=== PATIENT | female | born 1990 | race Caucasian/White ===

== ENCOUNTER → 2019-06-17 | Outpatient (CLI) | payer BC ==
[~2019-06-17] MED LIST: BCP PO
--- NOTE | 2019-06-17 17:08 | Diagnostic Imaging Report ---
INDICATION: survey, anatomic evaluation. TECHNIQUE: Multiple real-time grayscale images were obtained over the gravid uterus. COMPARISON: None FINDINGS: Number: 1 Presentation: Cephalic Placenta: Anteriorly located without evidence of placenta previa Amniotic Fluid: ALICIA is 13.7 cm. Single largest vertical pocket is 4.9 cm. Heart Rate: 150 bpm Overall biometrics are consistent with an estimated gestational age of 22 weeks and 0 days. Therefore, there is an estimated due date based upon this examination of 10/21/2019. Findings are consistent with clinical dating. However, biometrics for the femur are advanced when compared to the biometrics of the head or abdomen. FINDINGS: The four-chamber heart is not optimally visualized secondary to lie and patient body habitus. Otherwise, The anatomic survey is grossly unremarkable. The stomach, kidneys, bladder, three-vessel cord and the cord insertion are well seen. The spine and intracranial structures are grossly unremarkable. IMPRESSION: Single live intrauterine at approximately 22 weeks and 0 days, with an RADHA of 10/21/2019. These are consistent with clinical dates. Femoral length is slightly advanced when compared to other biometrics. This is favored to simply be technical in nature. Follow-up ultrasound in 4-8 weeks is recommended to evaluate growth. The four-chamber heart is not optimally evaluated. This should be reevaluated at the time of follow-up ultrasound. Biometrical measurements are as follows: Biparietal 5.07 cm, age 21 weeks 3 days. Head circumference 18.02 cm, age 20 weeks 4 days. Abdominal circumference 15.38 cm, age 20 weeks 5 days. Femur length 4.49 cm, age 24 weeks 6 days. Sonographic estimate age: 22 weeks 0 days. Sonographic estimated date of delivery: 10/21/2019. Estimated Weight: 489 gm (+/- 71 gm). LMP percentile: 98%. heart rate: 150 beats per minute. number: 1 of 1. Dictated by: Dictated on workstation # [id number]
== END ==
LOC: RAD 14:58
PROVIDERS: ATTEND Nurse Practitioner Women's Health
DX: Z36.9 Encounter for antenatal screening, unspecified (principal); Z3A.22 22 weeks gestation of pregnancy
CPT/HCPCS: 76805

== ENCOUNTER → 2021-06-28 | Outpatient (CLI) | payer BC, OTHER ==
[~2021-06-28] MED LIST changes: +ACHD5005 PO; +DOCU-239 PO; +IBUP-844 PO
--- NOTE | 2021-06-28 16:27 | Diagnostic Imaging Report ---
INDICATION: survey. TECHNIQUE: Multiple real-time grayscale images were obtained over the gravid uterus. COMPARISON: None. FINDINGS: There is a single live fetus in a transverse presentation, head to the maternal left. heart rate was recorded at 135 BPM. Placenta is posterior. No previa is identified. The amniotic fluid index is 11 cm. Cervical length is 6.6 cm. survey shows kidneys, bladder and stomach to be unremarkable. The brain is unremarkable. There is a four-chamber heart. There is a three-vessel cord with normal insertion. The spine is unremarkable. Biometrical measurements are as follows: Biparietal 4.42 cm, age 19 weeks 3 days. Head circumference 17.53 cm, age 20 weeks 1 days. Abdominal circumference 14.55 cm, age 20 weeks 0 days. Femur length 3.12 cm, age 19 weeks 5 days. Sonographic estimate age: 19 weeks 6 days. Sonographic estimated date of delivery: 11/16/2021. Estimated Weight: 313 gm (+/- 46 gm). LMP percentile: 41%. heart rate: 135 beats per minute. number: 1 of 1. IMPRESSION: Single live IUP of 19 weeks 6 days gestational age. Estimated date of confinement sonographically is 11/16/2021. Dictated by: Dictated on workstation # [id number]
== END ==
LOC: RAD 11:48
PROVIDERS: ATTEND Nurse Practitioner Women's Health
DX: Z34.02 Encounter for supervision of normal first pregnancy, second trimester (principal); Z3A.19 19 weeks gestation of pregnancy
CPT/HCPCS: 76805

== ENCOUNTER 2021-11-01 05:29 | Outpatient (CLI) | payer OTHER ==
[~2021-11-01] VITALS: Ht 154.9 cm; Wt 127.2 kg
[2021-11-02] MEDS ORDERED: LORA10TA72 PO (10:02)
[2021-11-02] MEDS ORDERED: FAMO40TA6 PO (10:02)
[2021-11-02] MEDS ORDERED: PREN1COM PO (10:02)
== END 2021-11-02 11:44 | disposition home or self-care (01) ==
LOC: PREOP 05:29
PROVIDERS: ATTEND Obstetrics & Gynecology
DX: Z01.818 Encounter for other preprocedural examination (principal)

== ENCOUNTER 2021-11-08 05:30 | Inpatient (IN) | payer OTHER ==
[2021-11-08] VITALS (12 sets, daily range): BP systolic 93–128; BP diastolic 58–72
[~2021-11-08] VITALS: Ht 154.9 cm; Wt 132.4 kg
[~2021-11-08 05:30] MED LIST changes: +FAMO40TA6 PO; +LORA10TA72 PO; +PREN1COM PO
[2021-11-08] MEDS ORDERED: FAMOTIDINE 20MG/2ML IV (PEPCID) IV ONE (05:45)
[2021-11-08] MEDS ORDERED: METOCLOPRAMIDE INJ 10 MG/2 ML (REGLAN) IV ONE (05:45)
[2021-11-08] MEDS ORDERED: LACTATED RINGERS 1,000 ML IV SCH (05:45)
[2021-11-08] MEDS ORDERED: ceFAZolin INJECTION 2,000 MG in NS (IVPB) 50 ML IV ONE (05:45)
[2021-11-08] MEDS ORDERED: CITRIC ACID/SOB CIT (BICITRA) 30 ML UDC PO ONE (05:45)
[2021-11-08] MEDS: LACTATED RINGERS 1,000 ML IV SCH ×3 (06:10→21:49)
[2021-11-08 06:14] LABS: BASOPHILS # (AUTO) 0.1 10^3/uL (0.0-0.1); BASOPHILS % (AUTO) 1 % (0-10); EOSINOPHILS # (AUTO) 0.1 10^3/uL (0.0-0.3); EOSINOPHILS % (AUTO) 2 % (0-10); HEMATOCRIT 34 % (35-52); HEMOGLOBIN 11.1 g/dL (11.5-16.0); LYMPHOCYTES # (AUTO) 2.1 10^3/uL (1.0-4.0); LYMPHOCYTES % (AUTO) 25 % (12-44); MEAN CORPUSCULAR HEMOGLOBIN 31 pg (25-34); MEAN CORPUSCULAR HGB CONC 33 g/dL (32-36); MEAN CORPUSCULAR VOLUME 95 fL (80-99); MEAN PLATELET VOLUME 10.4 fL (9.0-12.2); MONOCYTES # (AUTO) 0.7 10^3/uL (0.0-1.0); MONOCYTES % (AUTO) 8 % (0-12); NEUTROPHILS # (AUTO) 5.6 10^3/uL (1.8-7.8); NEUTROPHILS % (AUTO) 65 % (42-75); PLATELET COUNT 250 10^3/uL (130-400); WHITE BLOOD COUNT 8.6 10^3/uL (4.3-11.0)
--- NOTE | 2021-11-08 06:44 | History & Physical-OB ---
LOIDA PROCTOR 11/08/21 0644: OB - Chief Complaint & HPI Date/Time Date of Admission: Date of Admission: Nov 08, 2021 at 05:30 Date seen by a Provider: Nov 08, 2021 Time Seen by a Provider: 06:15 Chief Complaint/History OB-Reason for Admission/Chief: Section Hx : 2 Hx Para: 1 Expected Date of Delivery: Nov 15, 2021 Gestational Age in Weeks: 39 Gestational Age in Days: 0 Indication for induction: other (previous ) Indication for : desires repeat History of Labs RPR neg HBsAg neg RI HIV neg Allergies and Home Medications Allergies Coded Allergies: Penicillins (Verified Allergy, Unknown, 04/19/16) Sulfa (Sulfonamide Antibiotics) (Verified Allergy, Unknown, 04/19/16) Patient Home Medication List Home Medication List Reviewed: Yes Famotidine (Famotidine) 40 Mg Tablet, 40 MG PO DAILY, (Reported) Entered as Reported by: KENNY BARBOSA on 11/02/21 1002 Loratadine (Claritin) 10 Mg Tab.rapdis, 10 MG PO DAILY, (Reported) Entered as Reported by: KENNY BARBOSA on 11/02/21 1002 Prenat Vit Comb.10/Iron/FA/Dha (Vitafol-Ob+Dha Combo Pack) 65 Mg Iron-1 Mg-250 Mg Combo..pkg, 1 EACH PO DAILY, (Reported) Entered as Reported by: KENNY BARBOSA on 11/02/21 1002 Discontinued Medications Docusate Sodium (Dok) 100 Mg Capsule, 100 MG PO BID PRN for CONSTIPATION-1ST LINE Discontinued Reason: No Longer Taking Prescribed by: ROSEANNE ANGEL on 10/26/192239 Hydrocodone/Acetaminophen (Hydrocodone-Acetamin 5-325 mg) 1 Each Tablet, 1-2 TAB PO Q6HR PRN for PAIN-MODERATE (5-7) Discontinued Reason: No Longer Taking Prescribed by: ROSEANNE ANGEL on 10/26/192239 Ibuprofen (Ibu) 600 Mg Tablet, 600 MG PO Q6HR Discontinued Reason: No Longer Taking Prescribed by: ROSEANNE ANGEL on 10/26/192239 OB - History Hx of Present Care: Yes Ultrasounds: Normal mid trimester US Obstetrical Complications: Other (previous emergency ) Medical Complications: None Information Induced Hypertension: No Maternal Gestational Diabetes: No Hemorrhage: No Obstetrical History Hx : 2 Hx Para: 1 Hx Complication: No Hx Induced Hypertens: No Hx Maternal Gestational Diabet: No Hx Hemorrhage: No Delivery History Hx Section: Yes Adverse Rxn to Tranfusion: No Patient Past Medical History n/a Social History/Family History Alcohol Use: Denies Use Recreational Drug Use: No Smoking Cessation: Never smoker 2nd Hand Smoke Exposure: No Immunizations Hepatitis A: Yes Hepatitis B: Yes OB - Admission Exam Physical Exam Vitals: Vital Signs 11/08/21 06:10 Temp 36.8 Pulse 111 Resp 18 Pulse Ox 99 O2 Delivery Room Air HEENT: NCAT Heart: Rhythm Normal Lungs: Clear Abdomen: Gravid Extremities: Normal Labs Laboratory Tests Test 11/08/21 05:55 Range/Units White Blood Count 8.6 4.3-11.0 10^3/uL Red Blood Count 3.62 L 3.80-5.11 10^6/uL Hemoglobin 11.1 L 11.5-16.0 g/dL Hematocrit 34 L 35-52 % Mean Corpuscular Volume 95 80-99 fL Mean Corpuscular Hemoglobin 31 25-34 pg Mean Corpuscular Hemoglobin Concent 33 32-36 g/dL Red Cell Distribution Width 13.4 10.0-14.5 % Platelet Count 250 130-400 10^3/uL Mean Platelet Volume 10.4 9.0-12.2 fL Immature Granulocyte % (Auto) 0 % Neutrophils (%) (Auto) 65 42-75 % Lymphocytes (%) (Auto) 25 12-44 % Monocytes (%) (Auto) 8 0-12 % Eosinophils (%) (Auto) 2 0-10 % Basophils (%) (Auto) 1 0-10 % Neutrophils # (Auto) 5.6 1.8-7.8 10^3/uL Lymphocytes # (Auto) 2.1 1.0-4.0 10^3/uL Monocytes # (Auto) 0.7 0.0-1.0 10^3/uL Eosinophils # (Auto) 0.1 0.0-0.3 10^3/uL Basophils # (Auto) 0.1 0.0-0.1 10^3/uL Immature Granulocyte # (Auto) 0.0 0.0-0.1 10^3/uL OB - Assessment/Plan/Diagnosis Assessment Assessment: section Admission Dx 31 F repeat Admission Status: Inpatient Order (span 2 midnights) Reason for Inpatient Admission: 31F repeat Plan Plan: Section ROSEANNE ANGEL DO 11/08/21 0729: Allergies and Home Medications Allergies Coded Allergies: Penicillins (Verified Allergy, Unknown, 04/19/16) Sulfa (Sulfonamide Antibiotics) (Verified Allergy, Unknown, 04/19/16) Patient Home Medication List Famotidine (Famotidine) 40 Mg Tablet, 40 MG PO DAILY, (Reported) Entered as Reported by: KENNY BARBOSA on 11/02/21 1002 Loratadine (Claritin) 10 Mg Tab.rapdis, 10 MG PO DAILY, (Reported) Entered as Reported by: KENNY BARBOSA on 11/02/21 1002 Prenat Vit Comb.10/Iron/FA/Dha (Vitafol-Ob+Dha Combo Pack) 65 Mg Iron-1 Mg-250 Mg Combo..pkg, 1 EACH PO DAILY, (Reported) Entered as Reported by: KENNY BARBOSA on 11/02/21 1002 Discontinued Medications Docusate Sodium (Dok) 100 Mg Capsule, 100 MG PO BID PRN for CONSTIPATION-1ST LINE Discontinued Reason: No Longer Taking Prescribed by: ROSEANNE ANGEL on 10/26/19 2240 Hydrocodone/Acetaminophen (Hydrocodone-Acetamin 5-325 mg) 1 Each Tablet, 1-2 TAB PO Q6HR PRN for PAIN-MODERATE (5-7) Discontinued Reason: No Longer Taking Prescribed by: ROSEANNE ANGEL on 10/26/19 224 Ibuprofen (Ibu) 600 Mg Tablet, 600 MG PO Q6HR Discontinued Reason: No Longer Taking Prescribed by: ROSEANNE ANGEL on 10/26/19 2240 OB - Assessment/Plan/Diagnosis Plan Plan: Section Other Plan Verification and Attestation of Medical Student E/M Service A medical student performed and documented this service in my presence. I reviewed and verified all information documented by the medical student and made modifications to such information, when appropriate. I personally performed the physical exam and medical decision making. Roseanne Angel, Nov 08, 2021,07:29 LOIDA AGUAYO Nov 08, 2021 06:44 ROSEANNE ANGEL DO Nov 08, 2021 07:29
[2021-11-08] MEDS ORDERED: fentaNYL INJ 100 MCG/2 ML AMP ONE (07:04)
[2021-11-08] MEDS ORDERED: NEOSTIGMINE (BLOXIVERZ ) 1 MG/1ML 10 ML VIAL ONE (07:29)
[2021-11-08] MEDS ORDERED: PHENYLEPHRINE 100 MCG/ML 10 ML (ANESTHESIA) SYR ONE (07:30)
[2021-11-08] MEDS ORDERED: OXYTOCIN PRE-MIX DRIP 1,000 ML IV ONE (07:30)
[2021-11-08] MEDS ORDERED: ROPIVACAINE 5MG/ML 30ML VIAL ONE (07:41)
[2021-11-08] MEDS ORDERED: MEASLES,MUMPS,RUBELLA 1 EA INJ SC SCH (07:45)
[2021-11-08] MEDS ORDERED: BISACODYL 10 MG SUPP (DULCOLAX) PR PRN (07:45)
[2021-11-08] MEDS ORDERED: TETANUS,DIPTH,PERTUSS P/F (BOOSTRIX) 0.5 ML VIAL IM SCH (07:45)
[2021-11-08] MEDS ORDERED: NALOXONE 0.4 MG/ML 1 ML (NARCAN) VIAL IV PRN (07:45)
[2021-11-08] MEDS ORDERED: ONDANSETRON 4 MG/2 ML (SDV) Z0FRAN IVP PRN ×2 (07:45→08:45)
[2021-11-08] MEDS ORDERED: ONDANSETRON 4 MG/2 ML (SDV) Z0FRAN ONE (07:52)
[2021-11-08] MEDS ORDERED: KETOROLAC 30 MG/ML VIAL ONE (08:06)
[2021-11-08] MEDS: KETOROLAC 30 MG/ML VIAL IV SCH ×3 (08:20→21:19)
[2021-11-08] MEDS ORDERED: HYDROmorphone 2 MG/ML VIAL (DILAUDID) IV ONE ×2 (08:45→12:45)
[2021-11-08] MEDS ORDERED: IBUP-844 PO (08:55)
[2021-11-08] MEDS ORDERED: DOCU100C37 PO (08:55)
[2021-11-08] MEDS ORDERED: ACHD5005 PO (08:55)
--- NOTE | 2021-11-08 08:57 | Discharge Inst-Women's Service ---
Discharge Inst-Women's Serv Depart Medication/Instructions New, Converted or Re-Newed RX: Transmitted to Pharmacy Final Diagnosis POD 2 RLTCS Problems Reviewed?: Yes Consults/Follow Up Additional Follow Up: Yes Orders/Referrals Dr. Angel in 7-10 days and in 6 weeks Activity Activity: Activity as Tolerated Driving Instructions: No Driving for 1 Week NO SMOKING: NO SMOKING Nothing Inside Vagina: No Douching, No [place], No Tampons Diet Discharge Diet: No Restrictions Symptoms to Report to : Bleeding Excessive, Pain Increased, Fever Over 101 Degrees F, Vaginal Bleeding Increase, Questions/Concerns For Any Problems or Questions: Contact Your Physician Skin/Wound Care Infection Signs and Symptoms: Increased Redness, Foul Odor of Wound, Increased Drainage, Skin Itchy or Has a Rash, Increased Swelling, Temperature Above 101 F Operative Area Clean and Dry: Keep Incision Clean/Dry Stitches/[place]/Dermabond: Dermabond, Care of Stitches Bathing Instructions: ROSEANNE Soto DO Nov 08, 2021 08:56
[2021-11-08] MEDS: OXYTOCIN PRE-MIX DRIP 500 ML IV SCH ×2 (09:03→12:58)
[2021-11-08] MEDS: DOCUSATE SODIUM 100 MG (COLACE) CAP PO SCH ×2 (09:30→21:19)
[2021-11-08] MEDS: HYDROcodone/APAP 5 MG/325 MG (LORTAB) TAB PO PRN ×3 (11:11→23:29)
--- NOTE | 2021-11-08 13:30 | OPERATIVE REPORT ---
DATE OF SERVICE: 11/08/2021 PREOPERATIVE DIAGNOSES: 1. A 31-year-old G2, P1 at 39 weeks gestation. 2. Previous section. POSTOPERATIVE DIAGNOSES: 1. A 31-year-old G2, P1 at 39 weeks gestation. 2. Previous section. PROCEDURE: Repeat low transverse section. SURGEON: Ta Goldberg DO ANESTHESIA: Spinal. ESTIMATED BLOOD LOSS: 700 mL. URINE OUTPUT: 100 mL clear at the end of the procedure. FLUIDS: 1400 mL lactated Ringer's solution. FINDINGS: A live male weighing 8 pounds 13 ounces, Apgars of 8 and 9. Grossly normal appearing uterus, bilateral fallopian tubes and ovaries. SPECIMEN SENT: Placenta. INDICATIONS FOR PROCEDURE: This is a 31-year-old female is a patient who had sought care in my office. Her care was uncomplicated with the exception for need for repeat . Risks of the procedure were discussed with the patient in detail in the preoperative area including risk of bleeding, infection, damaging surrounding structures including, but not limited to bowel, bladder, ureter, kidneys, possible need for reoperation, postoperative complications that may occur, risk from anesthesia, recovery timeframe and even . After everything was discussed with the patient in detail, consent was obtained, the patient was taken to the operating room. OPERATIVE REPORT IN DETAIL: Once in the operating room, spinal analgesia was found to be adequate. She was placed in supine position with leftward tilt, prepped and draped in normal sterile fashion. A timeout was performed, and anesthesia was tested. I then make a Pfannenstiel skin incision through the previously existing scar using knife and carried down to underlying fascia using Bovie cautery. The fascial incision extended laterally using Bovie cautery. The superior aspect of fascial incision was then grasped with Jonatan clamps, tented up and dissected off the underlying rectus muscles. The inferior aspect of fascial incision was then grasped with Jonatan clamps, tented up and dissected off the underlying rectus muscles. The rectus muscles were dissected sharply down the midline, which exposed the peritoneum, which I entered bluntly and extended using blunt traction. Kenny ring retractor was placed in the peritoneal incision, which offers excellent lateral sidewall lateral sidewall retraction. I identified the lower uterine segment, which was found to be thinned out and make a low transverse incision to the vesicouterine peritoneum and bluntly dissected off the lower uterine segment, creating a bladder flap. I then proceeded with my myotomy until membranes were visualized, at which point I extended the uterine incision laterally and superiorly using bandage scissors. Amniotomy was then performed using Allis clamp. Clear fluid was noted. Infant was found in vertex presentation. With gentle fundal pressure, the infant's head was elevated up the incision where it delivered through the incision. The nares and oropharynx were bulb suctioned. Anterior and posterior shoulders were delivered. The infant was then brought to the operative field where the cord was doubly clamped and cut, and was handed off to waiting nurses in attendance. Cord blood was collected, 3-vessel cord with intact placenta delivered spontaneously thereafter. IV Pitocin was initiated to facilitate uterine contraction. Uterine fundus confirmed by manual massage. The uterus was then exteriorized and cleared of all endometrial clots and debris. I then proceeded with closing the uterine incision using 0 Vicryl suture in running locked fashion. A second layer of imbricating 0 Monocryl was placed. Excellent hemostasis was noted after doing this. I then placed the uterus back in the pelvis and copiously irrigated the pelvis using normal saline. Once again, there was no active bleeding noted from any of my dissection planes. I placed Interceed antiadhesive over my low transverse incision. I removed the Kenny ring retractor and then proceeded with closing the peritoneum using 3-0 Vicryl suture in a running fashion. The rectus muscles were reapproximated using 3-0 Vicryl suture in interrupted fashion. The fascia was reapproximated using 0 Vicryl suture in running fashion. The subcutaneous tissue was reapproximated using 3-0 plain interrupted subcutaneous stitch and skin reapproximated using 4-0 Monocryl running subcuticular. Dermabond was applied to incision and sterile dressing with adhesive white tape. The patient tolerated the procedure well and sent to recovery in stable condition. Lap and sponge counts were correct at the end of procedure. Instrument counts correct as well. Two grams of Ancef given preoperatively for infection prophylaxis. Job ID: [id number] DocumentID: [id number] Dictated Date: 11/08/2021 10:16:24 Fine Arts Model Date: 11/08/2021 13:29:49 Dictated By: TA GOLDBERG DO
[2021-11-08] MEDS: CATHETER FLUSH 10 ML SYR IV SCH ×2 (17:03→21:37)
[2021-11-09] VITALS: BP 108/71
[2021-11-09] MEDS: LACTATED RINGERS 1,000 ML IV SCH (00:42)
[2021-11-09] MEDS: CATHETER FLUSH 10 ML SYR IV SCH (03:37)
[2021-11-09] MEDS: KETOROLAC 30 MG/ML VIAL IV SCH (03:37)
[2021-11-09 03:42] VITALS: BP 116/56
[2021-11-09 05:43] LABS: BASOPHILS % (AUTO) 1 % (0-10); EOSINOPHILS # (AUTO) 0.1 10^3/uL (0.0-0.3); EOSINOPHILS % (AUTO) 2 % (0-10); HEMATOCRIT 31 % (35-52); LYMPHOCYTES % (AUTO) 25 % (12-44); MEAN CORPUSCULAR HEMOGLOBIN 30 pg (25-34); MEAN CORPUSCULAR HGB CONC 33 g/dL (32-36); MEAN CORPUSCULAR VOLUME 91 fL (80-99); MEAN PLATELET VOLUME 9.7 fL (9.0-12.2); MONOCYTES # (AUTO) 0.7 10^3/uL (0.0-1.0); MONOCYTES % (AUTO) 8 % (0-12); NEUTROPHILS # (AUTO) 5.1 10^3/uL (1.8-7.8); NEUTROPHILS % (AUTO) 64 % (42-75); PLATELET COUNT 200 10^3/uL (130-400); WHITE BLOOD COUNT 7.9 10^3/uL (4.3-11.0)
--- NOTE | 2021-11-09 08:15 | Anesthesia-Regional Post-Op ---
Regional Patient Condition Mental Status: Alert, Oriented x3 Circulation: Same as Pre-Op Headache: Absent Sensation: Full Recovery Motor Block: Absent Post Op Complications Complications None Follow Up Care/Instructions Patient Instructions None needed. Anesthesia/Patient Condition Patient is doing well, no complaints, stable vital signs, no apparent adverse anesthesia problems. No complications reported per nursing. DEBORAH PENN CRNA Nov 09, 2021 08:15
[2021-11-09] MEDS: IBUPROFEN 600 MG (MOTRIN) TAB PO SCH ×3 (08:47→21:25)
[2021-11-09] MEDS: DOCUSATE SODIUM 100 MG (COLACE) CAP PO SCH ×2 (08:47→21:25)
[2021-11-09] MEDS: HYDROcodone/APAP 5 MG/325 MG (LORTAB) TAB PO PRN ×3 (08:48→22:27)
[2021-11-09 08:49] VITALS: BP 130/63
--- NOTE | 2021-11-09 10:33 | Postpartum Progress Note ---
Note Note Day # 1 Subjective: Patient is without complaints. Ambulating, voiding. Tolerating a regular diet without nausea or vomiting. Normal lochia. Pain is well controlled with oral pain medications. Physical Exam: General - Alert and oriented, no apparent distress Abdomen - Soft, appropriately tender to palpation, non-distended, fundus firm at umbilicus; incision c/d/i Extremities - no edema, negative Justin's bilaterally Assessment: Post- day # 1, status post RLTCS Recovering well, hemodynamically stable Acute blood loss anemia Plan: Routine care. Encourage breast feeding. Encourage ambulation. Ferrous sulfate supplementation. Plan for discharge tomorrow Vitals - Labs Vital Signs - I&O Vital Signs Date Time Temp Pulse Resp B/P (MAP) Pulse Ox O2 Delivery O2 Flow Rate FiO2 11/09/21 08:49 37.3 88 18 130/63 (85) 96 Room Air 11/09/21 03:42 36.8 83 18 116/56 (76) 98 Room Air 11/09/21 00:00 36.8 105 16 108/71 (83) 98 Room Air 11/08/21 20:00 37.0 82 18 124/58 (80) 98 Room Air 11/08/21 16:10 36.9 75 18 128/69 (88) 98 Room Air I & O 11/09/21 07:00 Intake Total 1790 ml Output Total 600 ml Balance 1190 ml Labs Laboratory Tests 11/09/21 05:05: White Blood Count 7.9, Red Blood Count 3.35L, Hemoglobin 10.0L, Hematocrit 31L, Mean Corpuscular Volume 91, Mean Corpuscular Hemoglobin 30, Mean Corpuscular Hemoglobin Concent 33, Red Cell Distribution Width 13.4, Platelet Count 200, Mean Platelet Volume 9.7, Immature Granulocyte % (Auto) 1, Neutrophils (%) (Auto) 64, Lymphocytes (%) (Auto) 25, Monocytes (%) (Auto) 8, Eosinophils (%) (Auto) 2, Basophils (%) (Auto) 1, Neutrophils # (Auto) 5.1, Lymphocytes # (Auto) 2.0, Monocytes # (Auto) 0.7, Eosinophils # (Auto) 0.1, Basophils # (Auto) 0.0, Immature Granulocyte # (Auto) 0.0 Microbiology 11/08/21 MRSA Screen - Final, Complete MRSA not isolated NIVIA RODRIGUEZ APRN Nov 09, 2021 10:33
[2021-11-09 12:42] VITALS: BP 101/60
[2021-11-09 20:00] VITALS: BP 134/74
[2021-11-10 03:00] VITALS: BP 116/63
[2021-11-10] MEDS: IBUPROFEN 600 MG (MOTRIN) TAB PO SCH ×2 (03:01→08:50)
[2021-11-10 08:40] VITALS: BP 129/76
--- NOTE | 2021-11-10 08:47 | Progress Note ---
Standard Progress Note Progress Notes/Assess & Plan Date Seen by a Provider: Nov 10, 2021 Time Seen by a Provider: 08:46 Progress/Assessment & Plan This patient is without complaint. She is ambulating, voiding, tolerating oral intake well and has good pain control. Vital Signs Date Time Temp Pulse Resp B/P (MAP) Pulse Ox O2 Delivery O2 Flow Rate FiO2 11/10/21 03:00 36.7 81 16 116/63 (80) 97 Room Air 11/09/21 20:00 36.8 85 18 134/74 (94) 100 Room Air 11/09/21 12:42 35.9 88 18 101/60 (74) 96 Room Air 11/09/21 08:49 37.3 88 18 130/63 (85) 96 Room Air Vital signs are stable. Patient is afebrile. Abdomen is benign Extremities show no clubbing or cyanosis there is no Homans' sign. Assessment and plan Postoperative day #2 status post delivery doing well. Plan is for discharge home with follow-up in clinic MOISES RASHID MD Nov 10, 2021 08:47
[2021-11-10] MEDS: DOCUSATE SODIUM 100 MG (COLACE) CAP PO SCH (08:50)
[2021-11-10] MEDS: HYDROcodone/APAP 5 MG/325 MG (LORTAB) TAB PO PRN (08:50)
== END 2021-11-10 14:45 | disposition home or self-care (01) | DRG 787 ==
LOC: LDRP 05:30
PROVIDERS: ADMIT Obstetrics & Gynecology; ATTEND Obstetrics & Gynecology
PROC: 10D00Z1 Extraction of Products of Conception, Low, Open Approach (ICD-10-PCS; principal; 2021-11-08 07:20)
DX: O34.211 Maternal care for low transverse scar from previous cesarean delivery (principal); D62 Acute posthemorrhagic anemia; Z3A.39 39 weeks gestation of pregnancy; Z37.0 Single live birth; O90.81 Anemia of the puerperium
CPT/HCPCS: 36415; 85025; 86850; 86900; 86901; 87081; 94664